=== PATIENT | male | born 1940 | race Caucasian/White ===

== ENCOUNTER 2017-11-04 11:14 | Emergency (ER) | payer OTHER ==
[~2017-11-04] VITALS: Ht 172.7 cm; Wt 81.7 kg
[2017-11-04] MEDS ORDERED: METFORMIN HCL500 MG PO (12:12)
[2017-11-04] MEDS ORDERED: NIFEDIPINE10 MG PO (12:12)
[2017-11-04] MEDS ORDERED: SYNTHROID50 MCG PO (12:13)
[2017-11-04] MEDS ORDERED: [UNRECOGNIZED DRUG - OTHER] (12:13)
[2017-11-04] MEDS ORDERED: NEURONTIN 400M400 M2 PO (12:14)
[2017-11-04 12:36] LABS: ABSOLUTE BASOPHILS 0.1 thou/uL (0.0-0.2); ABSOLUTE EOSINOPHILS 0.2 thou/uL (0.0-0.7); ABSOLUTE LYMPHOCYTES 2.3 thou/uL (0.8-5.3); ABSOLUTE MONOCYTES 0.8 thou/uL (0.0-1.2); ABSOLUTE NEUTROPHILS 5.8 thou/uL (1.6-8.1); BASOPHILS 0.7 %; HEMATOCRIT 43.1 % (42.0-52.0); HEMOGLOBIN 14.6 gm/dL (14.0-18.0); LYMPHOCYTES 25.1 %; MCH 30.7 pg (26.0-34.0); MCHC 33.8 g/dL (28.0-37.0); MCV 90.8 fL (80.0-100.0); MONOCYTES 9.1 %; MPV 10.5 fl. (7.2-11.1); NUCLEATED RBCS 0 /100WBC; PLATELET COUNT* 176 thou/uL (150-400); POLYS 63.1 %; RBC 4.74 mil/uL (4.50-6.00); RDW-CV 13.4 % (10.5-14.5); WBC 9.1 thou/uL (4.0-11.0)
[2017-11-04 12:44] LABS: ANION GAP 10 mmol/L (7-16); BUN 12 mg/dL (7-18); CALCIUM 8.1 mg/dL (8.5-10.1); CHLORIDE 104 mmol/L (98-107); CO2 26 mmol/L (21-32); CREATININE 1.2 mg/dL (0.6-1.3); GLUCOSE 128 mg/dL (70-99); POTASSIUM 3.6 mmol/L (3.5-5.1); SODIUM 140 mmol/L (136-145)
[2017-11-04 12:48] LABS: APTT 26.2 Seconds (25.0-31.3); PROTIME 10.1 Seconds (9.20-11.50)
[2017-11-04 13:03] LABS: ALBUMIN 3.4 g/dL (3.4-5.0); ALKALINE PHOSPHATASE 128 U/L (46-116); CK-MB MASS 5.9 ng/mL (<0.5-3.6); LIPASE 97 U/L (73-393); NT-PRO BRAIN NAT PEPTIDE 303 pg/mL (<300); SGOT 22 U/L (15-37); SGPT 23 U/L (30-65); TOTAL BILIRUBIN 0.8 mg/dL (<0.1-1.0); TOTAL PROTEIN 6.4 g/dL (6.4-8.2); TROPONIN-I LEVEL <0.06 ng/mL (<0.06)
[2017-11-04 14:37] VITALS: BP 135/77
--- NOTE | 2017-11-04 14:59 | EKG ---
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: : 1940 Requested By: Garbiele Dickinson Order Number: [id number] MD: Collin George Measurements Intervals [place] Rate: 92 P: 24 MT: 144 QRS: -11 QRSD: 78 T: 17 QT: 353 QTc: 437 Interpretive Statements Sinus rhythm Atrial premature complex Baseline wander in lead(s) V4,V5,V6 No previous ECG available for comparison Electronically Signed On 11-04-2017 14:58:57 STEERER by Collin George [email or web address] <ELECTRONICALLY SIGNED> By: Collin George MD, [facility] 11/04/17 1458 [id number] Collin George MD, FACC /EPI
== END 2017-11-04 14:38 | disposition home or self-care (01) ==
LOC: M.ERS 11:14
PROVIDERS: Family Medicine
DX: R42 Dizziness and giddiness (principal); E11.9 Type 2 diabetes mellitus without complications; I10 Essential (primary) hypertension; E03.9 Hypothyroidism, unspecified